=== PATIENT | female | born 1950 | race Caucasian/White ===

== ENCOUNTER → 2017-12-08 | Day surgery (SDC) | payer MEDICARE, BC ==
[2017-12-01 10:52] LABS: BASOPHILS # (AUTO) 0.1 (0.0-0.1); EOSINOPHILS # (AUTO) 0.4 (0.0-0.4); EOSINOPHILS % 4.8 % (0.0-6.0); HEMATOCRIT 41.4 % (34.2-44.1); HEMOGLOBIN 13.5 g/dL (12.0-16.0); LYMPHOCYTES % 27.2 % (18.0-39.1); MEAN CORPUSCULAR HEMOGLOBIN 30.1 pg (28-32); MEAN CORPUSCULAR HGB CONC 32.6 g/dL (31-35); MEAN CORPUSCULAR VOLUME 92.4 fL (81-99); MONOCYTES # (AUTO) 0.6 (0.2-0.8); NEUTROPHILS # (AUTO) 4.3 (2.1-6.9); NEUTROPHILS % 58.7 % (38.7-80.0); PLATELET COUNT 370 x10e3/uL (140-360); RED BLOOD COUNT 4.48 x10e6/uL (3.6-5.1); RED CELL DISTRIBUTION WIDTH 13.3 % (11.7-14.4)
[~2017-12-08] MED LIST: EVISTA60 MG PO; FENTANYL CITRATE/PF 100MCG/2 ML INJ ONE; FLUTICASONE PRO16 GM; GELNIQUE92 GM PO; HYOSCYAMINE SULFATE 0.5 MG/ML AMP ONE; KRILL OIL500 MG PO; LIDOCAINE HCL 2% LOCAL INJ 5 ML SDV VIAL INJ ONE; LISINOPRIL-HCT1 EACH PO; LISINOPRIL20 MG PO; LISINOPRIL40 MG PO; MIDAZOLAM HCL 2 MG/2 ML VIAL ONE; NAPROSYN500 MG; OMEPRAZOLE40 MG PO; PRESERVISION A1 EACH PO; PROAIR HFA INH8.5 GM INH; PROPOFOL IV EMULSION 10 MG/ML 20 ML VIAL ONE; PROPOFOL IV EMULSION 10 MG/ML 50 ML VIAL ONE; SINGULAIR10 MG; SUPER B-COMPLEX PO; TRICOR145 MG PO; TYLENOL EXTRA500 MG PO; VIACTIV SOFT C1 EACH PO; VITAFUSION PO; VITAMIN C500 MG PO; ZETIA10 MG PO; ZYRTEC10 MG PO
--- OUTSIDE RECORDS SUMMARY | 2017-12-08 08:20 | XMS REPORT ---
Author Author [facility] Address Unknown Phone Unavailable Care Team Providers Care Beauty Shop Manager Name Role Phone TAMMIE HUIZAR Unavailable Unavailable Problems This patient has no known problems. Allergies, Adverse Reactions, Alerts This patient has no known allergies or adverse reactions. Medications This patient has no known medications. Results Test Description Test Time Test Comments Text Results Atomic Results Result Comments CT CHEST W [place] [address] Patient Name: KAMALA CHAPA MR #: [id number] : 1950 Age/Sex: 67/F Req # : [id number] Adm Physician: Ordered by: TAMMIE HUIZAR DO Report #: [id number] Location: CT Room/Bed: Procedure: [id number] CT/CT CHEST W Exam Date: Exam Time: REPORT STATUS: Signed PROCEDURE: CT scan of the chest WITH intravenous contrast, using standard protocol. TECHNIQUE: The chest was scanned utilizing a multidetector helical scanner from the lung apex through the level of the adrenal glands after the IV administration of 100 cc of Isovue 370. Coronal and sagittal multiplanar reformations were obtained. COMPARISON: 2016. INDICATIONS: SHORTNESS OF BREATH FINDINGS: Lines/tubes: None. Lungs and Airways: Patchy groundglass and reticular opacities in the anterior and lateral segments of the right lower lobe. Trace subsegmental atelectasis in the dependent lower lobes. No bronchiectasis or fibrotic change. Pleura: No pleural effusion or pneumothorax. Heart and mediastinum: Visualized portions of the thyroid gland are unremarkable. Mild right hilar lymphadenopathy. No mediastinal lymphadenopathy. No central pulmonary embolus. No ectasia or aneurysmal dilatation of the thoracic aorta. Mild atherosclerotic vascular disease. Normal heart size. No pericardial effusion. Soft tissues: No focal soft tissue abnormalities. Abdomen: Status post cholecystectomy. Visualized portions of the liver, spleen, and pancreatic tail are unremarkable. Bones: No osseous destructive lesions. IMPRESSION: Segmental right lower lobe pneumonia with reactive right hilar lymphadenopathy. Findings were discussed by telephone with Ms. Mitra Vickers PA-C at 3:00 PM on 09/02/2070. Dictated by: Antonia Rosado M.D. on 09/02/2017 at 15:12 Electronically approved by: Antonia Rosado M.D. on 09/02/2017 at 15:12 Dictated By: ANTONIA ROSADO MD 1512 Transcribed By: RENNY on 09/02/17 1512 COPY TO: TAMMIE HUIZAR DO
--- NOTE | 2017-12-08 12:15 | Operative Report ---
DATE OF PROCEDURE: December 08, 2017 REFERRING PHYSICIAN: Dr. Michael Alicia. PROCEDURES PERFORMED 1. Esophagogastroduodenoscopy with esophageal dilatation and biopsies. 2. Colonoscopy with polypectomy. INDICATIONS FOR EGD: Dysphagia, history of acid reflux. INDICATIONS FOR COLONOSCOPY: Colorectal cancer screening. MEDICATION: Patient was done under MAC. Please see anesthesiologist's note. PROCEDURE: With the patient in left lateral decubitus position, flexible fiberoptic Olympus gastroscope was introduced into the esophagus under direct visualization without any difficulty. There was a mild stricture noted at the GE junction that was dilated to size 52-[place]. The scope was then advanced with ease into the stomach, traversing a moderate-sized hiatal hernia. Mucosa overlying the antrum and the body revealed some patchy erythema and low-grade to moderate edema and biopsies were obtained and sent to stain for H. pylori. The pylorus was of normal contour and shape. It was intubated with ease and the scope was advanced all the way to the second portion of the duodenum. The scope was then withdrawn slowly. Mucosa overlying the proximal second portion and the duodenal bulb appeared to be within normal limits. The scope was then withdrawn back into the stomach and retroflexed. Mucosa overlying the fundus and the cardia appeared to be within normal limits. The scope was then straightened out. The scope was subsequently withdrawn. Patient tolerated the procedure well. IMPRESSION 1. Mild stricture at GE junction, dilated to size 52-[place]. 2. Moderate-sized hiatal hernia. 3. Gastritis biopsied, biopsies sent to stain for H. pylori. PLAN: Followup histology. Continue omeprazole 40 mg 1 p.o. q.a.m. a.c. Patient was then turned around and after adequate lubrication of the anal canal, a flexible fiberoptic Olympus colonoscope was inserted into the rectum with ease and advanced all the way to the cecum. One polyp was hot biopsied from the cecum. Polypectomy site was hemoclipped. The scope was then withdrawn slowly. Mucosa overlying the ascending and the transverse appeared to be within normal limits. Some diverticular disease was noted in the distal descending and the sigmoid colon. One polyp was hot biopsied from the rectum. The scope was then retroflexed into the distal rectum and small internal hemorrhoids were noted, none of which was actively bleeding. The scope was then straightened out. The rectosigmoid area as well as the distal rectal area were decompressed. Scope was subsequently withdrawn. Patient tolerated the procedure well. IMPRESSION 1. Cecal polyp, hot biopsied, polypectomy site hemoclipped. 2. Diverticulosis. 3. Rectal polyp, hot biopsied. 4. Internal hemorrhoids, none actively bleeding. PLAN: Followup histology. Initiate high-fiber, low-fat diet. Initiate high-fiber supplement. Patient will need a followup colonoscopy in 3 to 5 years. Job#: [id number] [facility] cc:Michael Alicia DO
== END | disposition home or self-care (01) ==
LOC: OR 08:17
PROVIDERS: ATTEND Internal Medicine Gastroenterology
DX: K22.2 Esophageal obstruction (principal); K63.5 Polyp of colon; K62.1 Rectal polyp; K29.70 Gastritis, unspecified, without bleeding; K21.9 Gastro-esophageal reflux disease without esophagitis; K44.9 Diaphragmatic hernia without obstruction or gangrene; K57.30 Diverticulosis of large intestine without perforation or abscess without bleeding; K64.8 Other hemorrhoids; I11.0 Hypertensive heart disease with heart failure; I50.9 Heart failure, unspecified; I44.7 Left bundle-branch block, unspecified; R05 Cough; Z01.810 Encounter for preprocedural cardiovascular examination; Z01.812 Encounter for preprocedural laboratory examination; Z68.35 Body mass index [BMI] 35.0-35.9, adult; Z80.0 Family history of malignant neoplasm of digestive organs
CPT/HCPCS: 36415; 43239; 43450; 45384; 85025; 88305; 88312; 93005; J1980; J2001; J2250

== ENCOUNTER → 2018-01-14 | Outpatient (CLI) | payer MEDICARE, BC ==
[~2018-01-14] MED LIST changes: -FENTANYL CITRATE/PF 100MCG/2 ML INJ ONE; -HYOSCYAMINE SULFATE 0.5 MG/ML AMP ONE; -LIDOCAINE HCL 2% LOCAL INJ 5 ML SDV VIAL INJ ONE; -MIDAZOLAM HCL 2 MG/2 ML VIAL ONE; -PROPOFOL IV EMULSION 10 MG/ML 20 ML VIAL ONE; -PROPOFOL IV EMULSION 10 MG/ML 50 ML VIAL ONE
--- NOTE | 2018-01-14 14:18 | Diagnostic Imaging Report ---
PROCEDURE:X-RAY MODIFIED BARIUM SWALLOW COMPARISON:None. INDICATIONS:Dysphasia DISCUSSION:Fluoroscopic examination was performed in conjunction with speech pathology, during swallowing of a variety of thin and thick liquid consistencies. Fluoroscopy time: 0.6 minutes Total dose: 4.13 mGy CONCLUSION:No penetration or aspiration. Please see the report from speech pathology for complete details. Steve Ontiveros D.O. Dictated by: Steve Ontiveros D.O. on 01/14/2018 at 13:42 Electronically approved by: Steve Ontiveros D.O. on 01/14/2018 at 14:18
== END ==
LOC: DX 08:40
PROVIDERS: ATTEND Internal Medicine Gastroenterology
DX: R13.10 Dysphagia, unspecified (principal)
CPT/HCPCS: 74230; 92611; G8996; G8997; G8998

== ENCOUNTER 2018-05-31 04:20 | Observation (INO) | payer MEDICARE, BC ==
[~2018-05-31] VITALS: Ht 157.5 cm; Wt 78.5 kg
[2018-05-31] MEDS ORDERED: ASPIRIN 81 MG CHEW TAB PO ONE (04:45)
[2018-05-31 05:10] LABS: BASOPHILS # (AUTO) 0.1 (0.0-0.1); EOSINOPHILS # (AUTO) 0.2 (0.0-0.4); EOSINOPHILS % 3.5 % (0.0-6.0); HEMATOCRIT 39.1 % (34.2-44.1); HEMOGLOBIN 12.5 g/dL (12.0-16.0); LYMPHOCYTES # (AUTO) 1.8 (1.0-3.2); LYMPHOCYTES % 25.8 % (18.0-39.1); MEAN CORPUSCULAR VOLUME 93.8 fL (81-99); MONOCYTES # (AUTO) 0.6 (0.2-0.8); MONOCYTES % 8.5 % (4.4-11.3); NEUTROPHILS # (AUTO) 4.2 (2.1-6.9); NEUTROPHILS % 61.1 % (38.7-80.0); PLATELET COUNT 232 x10e3/uL (140-360); RED BLOOD COUNT 4.17 x10e6/uL (3.6-5.1); RED CELL DISTRIBUTION WIDTH 13.6 % (11.7-14.4)
[2018-05-31 05:20] LABS: INR 0.96
[2018-05-31 05:21] LABS: PARTIAL THROMBOPLASTIN TIME 23.6 seconds (23.8-35.5)
[2018-05-31 05:28] LABS: ALBUMIN 3.6 g/dL (3.5-5.0); ALBUMIN/GLOBULIN RATIO 0.9 (0.8-2.0); ANION GAP 15.9 mmol/L (8-16); CALCIUM 9.9 mg/dL (8.4-10.2); CREATININE, SERUM 0.97 mg/dL (0.57-1.11); MAGNESIUM 1.8 MG/DL (1.3-2.1); POTASSIUM 3.9 mmol/L (3.5-5.1)
[2018-05-31 05:35] LABS: CREATINE KINASE MB 0.6 ng/mL (0-5.0)
--- NOTE | 2018-05-31 05:42 | Diagnostic Imaging Report ---
CHEST 2 VIEWS, Technique: CHEST 2 VIEWS Comparison: 01/08/2017 Clinical history: Chest pain and hypertension DISCUSSION: Heart/mediastinum: Stable appearance. Aortic calcifications. Lungs/pleural spaces: No consolidation or edema. No pleural effusion or pneumothorax. IMPRESSION: No acute abnormality Signed by: Dr Hui Bangura MD on 05/31/2018 5:39 AM
[2018-05-31] MEDS ORDERED: ONDANSETRON HCL INJ 2 MG/ML VIAL IV PRN (06:15)
[2018-05-31] MEDS ORDERED: MORPHINE SULFATE 2 MG/ML SYR IV PRN (06:15)
[2018-05-31] MEDS ORDERED: FAMOTIDINE 20 MG/2 ML VIAL IV SCH (06:15)
[2018-05-31 07:36] VITALS: BP 142/63
[2018-05-31 08:15] VITALS: BP 142/63
[2018-05-31 08:46] LABS: CHOL/HDL RATIO 4.1 (3.0-3.6)
[2018-05-31] MEDS ORDERED: ASPIRIN 81 MG ENTERIC COATED PO SCH (09:00)
[2018-05-31] MEDS ORDERED: LISINOPRIL 10 MG TAB PO SCH (09:00)
[2018-05-31] MEDS ORDERED: LISINOPRIL 20 MG TAB PO SCH (09:00)
--- NOTE | 2018-05-31 10:14 | History and Physical ---
CHIEF COMPLAINT: Chest pain. HISTORY OF PRESENT ILLNESS: This 68-year-old white woman who presents to [facility] Emergency Room with a 2-week history of intermittent midepigastric/substernal chest pain. The patient states the pain at times radiates to her right scapular area. Patient states the pain seems to worsen with coughing and when recumbent. Patient actually has an appointment with her foreign banknote teller, June 08, 2018 namely, Dr. Cook. The patient states she has history of hyperlipidemia, but unfortunately has a history of severe statin intolerance. The patient had complete blood count and a comprehensive metabolic profile in the emergency room, which was unremarkable. Patient's LDL cholesterol was 137 mg/dL. Patient's triglycerides were 204 mg/dL. HDL cholesterol was 57 mg/dL. The patient had EKG done in the emergency room that revealed an old left bundle-branch block. She is admitted for further evaluation and treatment. REVIEW OF SYSTEMS: GENERAL: Weight has been stable. No fever or chills. HEENT: No headaches. No visual changes. CARDIOVASCULAR/RESPIRATORY: Midepigastric pain/substernal chest pain for last 2 weeks intermittently. Slight cough associated with shortness of breath. : No UTI symptoms. NEUROMUSCULAR: Patient does have back pain at times. ALLERGIES: 1. STATIN INTOLERANCE. 2. TRAMADOL. FAMILY HISTORY: Mother had congestive heart failure. SOCIAL HISTORY: Patient is . Lives with her . Patient is retired. No history of tobacco or alcohol use. SURGICAL HISTORY: 1. Appendectomy. 2. Cholecystectomy. PAST MEDICAL HISTORY: 1. Hypertensive heart disease. 2. Hyperlipidemia. 3. Severe statin intolerance. 4. Obesity. 5. GERD. 6. Hypertriglyceridemia. 7. Overactive bladder. MEDICATIONS: 1. Albuterol inhaler 2 puffs q.i.d. 2. Vitamin C 500 mg daily. 3. Zyrtec 10 mg daily. 4. Zetia 10 mg daily. 5. Fenofibrate 145 mg daily. 6. Flonase 1 spray to each nostril daily. 7. Krill oil 500 mg daily. 8. Lisinopril/hydrochlorothiazide 20 and 12.5 once daily. 9. Omeprazole 40 mg daily. 10. Oxybutynin 5 mg daily. 11. Evista 60 mg daily. 12. PreserVision 1 vitamin daily. 13. Super B-complex once daily. PHYSICAL EXAMINATION: GENERAL: She is awake, alert, and fully oriented, in no distress. Very pleasant and cooperative with exam. She is currently chest pain free. VITAL SIGNS: Blood pressure is 142/63, pulse 62, respiratory rate 18, temperature 97.8, oxygen saturation is 94% on room air. Height is 5 feet 2 inches. Weight is 173 pounds. BMI 32. INTEGUMENT: Skin is warm and dry. No pallor, jaundice, or diaphoresis. HEENT: Anicteric sclerae with moist mucous membranes. NECK: Supple. CARDIOVASCULAR: Distant heart sounds. Regular rate and rhythm. LUNGS: No rales, no rhonchi, no wheeze. ABDOMEN: Obese, yet benign. EXTREMITIES: No edema or deformity. NEUROLOGIC: Intact. DIAGNOSES: 1. Atypical chest pain. 2. Statin intolerance. 3. Hyperlipidemia. 4. Hypertensive heart disease. 5. Gastroesophageal reflux disease. PLAN: 1. Rule out myocardial infarction. 2. Consult cardiology. 3. Proton pump inhibitor. 4. Blood pressure control. I spent 40 minutes in the care of the patient. Job#: [id number] DR HERMAN
[2018-05-31 11:12] VITALS: BP 144/61
[2018-05-31 11:23] VITALS: BP 144/61
--- NOTE | 2018-05-31 13:39 | Consultation ---
DATE OF CONSULTATION: May 31, 2018 CARDIOLOGY CONSULTATION REQUESTING PHYSICIAN: Dr. Morales REASON FOR CONSULTATION: Chest pain. HISTORY OF PRESENT ILLNESS: This is a 68-year-old woman with history of hypertension and hyperlipidemia who presented with complaints of chest pain and shortness of breath. She reports she has been having central stabbing chest pain for the last 2 weeks. The pain is 8/10 in severity and occurs when she coughs. The pain radiates to the back and is associated with shortness of breath. It occurs every night and lasts hours at a time. In addition, she notes that she has been short of breath for the last 2 weeks as well. REVIEW OF SYSTEMS: Negative except as per HPI. PAST MEDICAL HISTORY 1. Hypertension. 2. Hyperlipidemia. PAST SURGICAL HISTORY 1. Tonsillectomy. 2. Cholecystectomy. 3. Appendectomy. 4. Bilateral foot surgery ALLERGIES: STATIN INTOLERANT, otherwise see EMR. SOCIAL HISTORY: No tobacco, alcohol or illicit drugs. FAMILY HISTORY: Pertinent for mother with congestive heart failure and stents and brother with myocardial infarction in his 40s or 50s. OBJECTIVE VITAL SIGNS: Temperature 97.3 degrees, pulse 65, respiratory rate is 17, blood pressure 144/61, oxygen saturation 94% on room air. GENERAL: Obese woman, no acute distress. Well-developed, well-nourished. HEENT: Normocephalic, atraumatic. Pupils equal. No scleral icterus. NECK: Supple. No thyromegaly or cervical lymphadenopathy. No carotid bruits. LUNGS: Clear to auscultation bilaterally. No wheezes, no crackles. CARDIOVASCULAR: Normal rate, regular rhythm. No murmur. Normal S1, S2. ABDOMEN: Soft, nontender. EXTREMITIES: No edema. NEURO: Nonfocal exam. LABS: WBC 6.85, hemoglobin 12.5, hematocrit 39.1, platelets 232. Sodium 141, potassium 3.9, chloride 108, CO2 21. BUN 13, creatinine 0.97. BNP 42. Troponin 0.003. Chest x-ray: No acute abnormality. EKG: Normal sinus rhythm. Left bundle branch block. IMPRESSION 1. Atypical chest pain. 2. Hypertension. 3. Hyperlipidemia with statin intolerance. 4. Gastroesophageal reflux disease. RECOMMENDATIONS: Trend cardiac enzymes. Obtain echocardiogram. Given risk factors, patient does warrant ischemic evaluation with a treadmill nuclear stress test. Thank you for this consult. We will continue to follow. Job#: [id number] [facility]
[2018-05-31 16:13] VITALS: BP 133/60
[2018-05-31 17:21] LABS: CREATINE KINASE MB 0.6 ng/mL (0-5.0)
--- NOTE | 2018-05-31 18:44 | Cardiology Report ---
DATE OF STUDY: May 31, 2018 PROCEDURE TITLE: Rest/stress single isotope SPECT imaging with exercise stress and gated SPECT imaging. INDICATION: Chest pain. PROCEDURE: The patient performed treadmill exercise using a Anil protocol, exercising for 6 minutes 1 second to stage 2 and completing estimated work load of 7 metabolic equivalents (METS). The test was terminated due to fatigue. The heart rate was 84 beats per minute at rest and increased to 135 beats per minute at peak exercise, which was 88% of the maximum predicted heart rate. The rest blood pressure was 146/76 mmHg and increased to 181/114 mmHg, which is a normal response. The patient did not develop any symptoms other than fatigue during the procedure. Resting electrocardiogram demonstrated normal sinus rhythm with left bundle-branch block. There were no ST-segment changes consistent with myocardial ischemia. Myocardial perfusion imaging was performed at rest following the injection of 10 mCi of tetrofosmin. At peak exercise, the patient was injected with 31 mCi of tetrofosmin, and exercise was continued for 1 minute. Gated poststress tomographic imaging was performed. FINDINGS 1. The overall quality of the study is fair. 2. Left ventricle was noted to be normal size on the rest and stress studies. 3. Stress images demonstrate homogenous tracer distribution throughout the myocardium. 4. Gated SPECT imaging reveals normal myocardial thickening and wall motion. 5. Left ventricular ejection fraction was calculated at 60%. IMPRESSION: Normal clinical, electrocardiographic and hemodynamic exercise treadmill stress test. Myocardial perfusion imaging is normal. Overall left ventricular systolic function was normal without regional wall motion abnormalities. Job#: [id number]
--- NOTE | 2018-05-31 20:51 | Discharge Summary ---
ADMITTING DIAGNOSES: 1. Atypical chest pain. 2. Statin intolerance. 3. Hyperlipidemia. 4. Hypertensive heart disease. 5. Gastroesophageal reflux disease. 6. Mild obesity, body mass index of 32. DISCHARGE DIAGNOSES: 1. Atypical chest pain, resolved. 2. Statin intolerance. 3. Hyperlipidemia. 4. Hypertensive heart disease. 5. Gastroesophageal reflux disease. 6. Mild obesity, body mass index of 32. HOSPITAL COURSE: This is a 68-year-old white woman initially admitted to [facility] with diagnosis of atypical chest pain. Patient has cardiac risk factors, namely hyperlipidemia, hypertension and obesity. During this hospitalization, patient was seen by her windows security analyst, Dr. Chanelle Cook. Patient underwent serial cardiac enzymes as well as electrocardiogram during this hospitalization which did not reveal any acute myocardial ischemia or infarction. Patient was also found to have an LDL and HDL cholesterol of 137 and 57 mg/dL respectively. Patient's triglycerides were 204 mg/dL. The patient's EKG did reveal old left bundle branch block though. Patient underwent a stress test during this hospitalization which was completely normal. CONDITION ON DISCHARGE: Stable. DISCHARGE MEDICATIONS: 1. Albuterol inhaler 2 puffs q.i.d. 2. Vitamin C 500 mg daily. 3. Zyrtec 10 mg a day. 4. Zetia 10 mg a day. 5. Fenofibrate 145 mg a day. 6. Flonase 1 spray to each nostril daily. 7. Krill oil 500 mg daily. 8. Lisinopril/hydrochlorothiazide 20 per 12.5 mg daily. 9. Omeprazole 40 mg daily. 10. Oxybutynin 5 mg daily. 11. Evista 60 mg daily. 12. PreserVision 1 vitamin daily. 13. Super B-complex once daily. FOLLOWUP INSTRUCTIONS: Patient is instructed to follow up with her windows security analyst, Dr. Chanelle Cook, on Friday, June 08, 2018. ILENE LOZANO MD Job#: [id number] [facility]
== END 2018-05-31 18:55 | disposition home or self-care (01) ==
LOC: ER 04:20 → ERHOLD 06:16 → IMCU 07:40
DX: R07.89 Other chest pain (principal); E78.5 Hyperlipidemia, unspecified; I11.9 Hypertensive heart disease without heart failure; E66.9 Obesity, unspecified; K21.9 Gastro-esophageal reflux disease without esophagitis; N32.81 Overactive bladder; E78.1 Pure hyperglyceridemia; Z68.32 Body mass index [BMI] 32.0-32.9, adult; T46.6X5A Adverse effect of antihyperlipidemic and antiarteriosclerotic drugs, initial encounter
CPT/HCPCS: 36415; 71046; 78452; 80053; 80061; 82550; 82553; 83735; 83880; 84484; 85025; 85610; 85730; 93005; 93017; 93306; 99284; A9502; G0378

== ENCOUNTER → 2022-12-03 | Outpatient (CLI) | payer MEDICARE | LOC: RAD 13:59 | PROVIDERS: ATTEND Internal Medicine Critical Care Medicine | DX: R05.9 Cough, unspecified (principal) | CPT/HCPCS: 71046 ==